=== PATIENT | female | born 1935 | race Caucasian/White ===

== ENCOUNTER 2016-02-17 11:49 | Outpatient (CLI) | payer MEDICARE, OTHER | END 2016-02-17 11:50 | disposition home or self-care (01) | DX: M51.36 Other intervertebral disc degeneration, lumbar region (principal); M47.816 Spondylosis without myelopathy or radiculopathy, lumbar region; M51.34 Other intervertebral disc degeneration, thoracic region ==

== ENCOUNTER 2018-04-12 13:17 | Outpatient (CLI) | payer MEDICARE, OTHER ==
--- NOTE | 2018-04-12 14:51 | XRAY Report ---
Reason: COUGH,PAIN IN LEFT KNEE Procedure Date: 04/12/2018 Accession Number: [id number] / [id number] Procedure: XR - Chest 2 View X-Ray CPT Code: 92125 FULL RESULT: EXAM: CHEST RADIOGRAPHY EXAM DATE: 04/12/2018 01:29 PM. CLINICAL HISTORY: Cough, pain IN LEFT KNEE. COMPARISON: THORACIC SPINE 2 VIEW 02/17/2016 12:20 PM. TECHNIQUE: 2 views. FINDINGS: Lungs/Pleura: Lungs are well expanded. No evidence of lobar consolidation or effusion. Increased opacity within the left lung base on frontal view is probably prominent epicardiac fat. There is no evidence of pneumothorax. Mediastinum: Heart and mediastinal contours are unremarkable. Other: None. IMPRESSION: No acute intrathoracic plain film abnormality. RADIA
--- NOTE | 2018-04-12 16:39 | XRAY Report ---
Reason: COUGH,PAIN IN LEFT KNEE Procedure Date: 04/12/2018 Accession Number: [id number] / [id number] Procedure: XR - Knee 3 View LT CPT Code: FULL RESULT: EXAM: LEFT KNEE RADIOGRAPHY EXAM DATE: 04/12/2018 01:29 PM. CLINICAL HISTORY: COUGH,PAIN IN LEFT KNEE. COMPARISON: None. TECHNIQUE: 3 views. FINDINGS: Bones: Normal. No fractures or bone lesions. Joints: No evidence of significant degenerative disease. No effusion. No subluxations. Soft Tissues: Normal. No soft tissue swelling. IMPRESSION: Negative knee radiography. RADIA
== END 2018-04-12 13:18 | disposition home or self-care (01) ==
LOC: DI 13:17
PROVIDERS: ATTEND Registered Nurse
DX: R05 Cough (principal); M25.562 Pain in left knee
CPT/HCPCS: 71046

== ENCOUNTER 2018-05-25 08:26 | Outpatient (CLI) | payer MEDICARE, OTHER ==
--- NOTE | 2018-05-25 16:11 | MRI Report ---
Reason: PAIN IN LEFT KNEE Procedure Date: 05/25/2018 Accession Number: [id number] / [id number] Procedure: MRI - Knee LT W/O CPT Code: FULL RESULT: EXAM: LEFT KNEE MRI WITHOUT CONTRAST EXAM DATE: 05/25/2018 09:13 AM. CLINICAL HISTORY: PAIN IN LEFT KNEE. COMPARISON: Left knee radiographs 04/12/2018. TECHNIQUE: Multiplanar, multisequence T1-weighted and fluid-sensitive sequences of the knee without contrast. Other: None. FINDINGS: Bones: No fractures. No osseous lesions.. Articular Cartilage: 1 x 1.1 cm area of deep partial thickness cartilage loss at the lateral patellar facet with small foci of underlying subchondral edema. 0.5 x 0.6 cm deep partial thickness cartilage loss of the lateral femoral trochlea with small foci of underlying subchondral edema. Medial compartment articular cartilage is intact. 0.9 x 0.6 cm deep partial thickness cartilage defect of the central weightbearing lateral tibial plateau without subchondral edema. The lateral femoral articular cartilage is intact. Medial Meniscus: Intermediate signal extends to the tibial surface of the posterior horn of the medial meniscus (series 701 images 19 through 22). Lateral Meniscus: Intermediate signal extends to the tibial surface of the posterior horn of the lateral meniscus (series 701 images 7 and 8). Cruciate Ligaments: The anterior and posterior cruciate ligaments are intact. Collateral Ligaments: The medial collateral and lateral collateral ligamentous structures are intact. Tendons: The quadriceps, patellar, semimembranosus, and popliteus tendons are unremarkable. Musculature: No edema or fatty atrophy. Other: Moderate sized effusion. Small popliteal cyst. No popliteal cyst. No loose bodies. The medial and lateral retinacula are intact. The subcutaneous tissues and fat pads are unremarkable. IMPRESSION: 1. Left knee osteoarthritis, with focal areas of deep partial thickness cartilage loss and mild underlying subchondral edema at the patellofemoral and lateral compartments. 2. Horizontal oblique tears of the posterior horns of the medial and lateral menisci. 3. Moderate sized knee joint effusion and small popliteal cyst. RADIA
== END 2018-05-25 08:27 | disposition home or self-care (01) ==
LOC: DI 08:26
PROVIDERS: ATTEND Registered Nurse
DX: M17.12 Unilateral primary osteoarthritis, left knee (principal); S83.242A Other tear of medial meniscus, current injury, left knee, initial encounter; S83.282A Other tear of lateral meniscus, current injury, left knee, initial encounter; M71.22 Synovial cyst of popliteal space [Baker], left knee; M25.462 Effusion, left knee

== ENCOUNTER 2020-02-21 08:08 | Emergency (ER) | payer MEDICARE, OTHER ==
[2020-02-21] MEDS ORDERED: KETOROLAC 30 MG/ML VIAL IM STA (08:35)
[2020-02-21] MEDS ORDERED: ONDANSETRON ODT 4 MG TABLET TL STA (08:35)
[2020-02-21] MEDS ORDERED: HYDROcod/ACETAM 5/325 MG TABLET PO STA (08:35)
--- NOTE | 2020-02-21 09:38 | ED Physician Documentation ---
PD HPI LOWER EXT INJURY - Stated complaint Stated Complaint: RT LEG PX - Chief complaint Chief Complaint: Ext Problem - History obtained from History obtained from: Patient - History of Present Illness PD HPI LOW EXT INJURY LOCATION: Right, Lower leg, Thigh Type of injury: No: Fall, Twist, Blunt / blow Timing - details: Gradual onset, Still present (fairly consistent pain, worse with walking, but not with leg movement itself. No rash nor sores. Pattern is lateral right thigh to knee and down anteromedial right lower leg. No edema.) Improved by: Rest. No: Meds Worsened by: Other (walking and with lower back bending.). No: Moving, Palpating Associated symptoms: No: Weakness, Numbness, Swelling, Discolored Similar symptoms before: Has not had sx before Recently seen: Not recently seen Review of Systems Constitutional: denies: Fever, Chills, Myalgias Nose: denies: Rhinorrhea / runny nose, Congestion Throat: denies: Sore throat Respiratory: denies: Cough GI: denies: Abdominal Pain, Nausea, Vomiting : denies: Dysuria, Frequency Skin: denies: Rash Neurologic: denies: Focal weakness, Numbness PD PAST MEDICAL HISTORY - Past Medical History Past Medical History: Yes Cardiovascular: None Respiratory: None - Past Surgical History Past Surgical History: No - Present Medications Home Medications: Ambulatory Orders Medication Instructions Recorded Confirmed HYDROcod/ACETAM 5/325 [[place] 5/325] 1 ea PO Q6H PRN #18 tablet 02/21/20 Ondansetron Odt [Zofran] 4 mg TL Q8H PRN #20 tablet 02/21/20 tiZANidine [Zanaflex] 4 mg PO Q8H PRN #25 tablet 02/21/20 - Allergies Allergies/Adverse Reactions: Allergies Allergy/AdvReac Type Severity Reaction Status Date / Time No Known Drug Allergies Allergy Verified 02/21/20 08:20 - Social History Does the pt smoke?: No Smoking Status: Unknown if ever smoked PD ED PE NORMAL - Vitals Vital signs reviewed: Yes - General General: Alert and oriented X 3, No acute distress (but does appear uncomfortable. Rubbing at right lateral thigh for distraction. No limitation of back movement. ), Well developed/nourished - Back Back: No CVA TTP, No spinal TTP - Derm Derm: Normal color, Warm and dry, No rash - Extremities Extremities: No edema, No calf tenderness / cord, Other (not tender in leg itself. ) - Neuro Neuro: Alert and oriented X 3, No motor deficit, No sensory deficit, Normal speech Results - Vitals Vitals: Vital Signs - 24 hr 02/21/20 02/21/20 08:14 10:05 Temperature 36.6 C 37.0 C Heart Rate 93 73 Respiratory 18 16 Rate Blood Pressure 143/102 H 109/82 H O2 Saturation 99 99 Oxygen O2 Source Room air PD MEDICAL DECISION MAKING - ED course Complexity details: considered differential (seems like sciatic pattern pain. Clinically not seeming to be DVT, shingles, myalgias, nor muscle strain. ), d/w patient Departure - Departure Disposition: Home, Self Care Clinical Impression: Sciatic leg pain Condition: Stable Record reviewed to determine appropriate education?: Yes Instructions: ED Sciatica Follow-Up: Kaylee Lobato, GINA [Primary Care Provider] - Prescriptions: HYDROcod/ACETAM 5/325 [[place] 5/325] 1 ea PO Q6H PRN #18 tablet PRN Reason: Pain tiZANidine [Zanaflex] 4 mg PO Q8H PRN #25 tablet PRN Reason: Spasms Ondansetron Odt [Zofran] 4 mg TL Q8H PRN #20 tablet PRN Reason: Nausea / Vomiting Comments: You with the prednisone as previously prescribed. Hold off on the tramadol. Use Tylenol every 6 hours or hydrocodone with acetaminophen if needed for worse pain. Zofran if needed for nausea from meds. Also consider tizanidine muscle relaxant in case there is some muscle spasming around the nerve roots. Follow-up for physical therapy or chiropractic would be helpful as well. Follow-up with your primary care this coming week for reevaluation. Discharge Date/Time: 02/21/20 10:13
[2020-02-21 10:06] VITALS: BP 109/82
== END 2020-02-21 10:13 | disposition home or self-care (01) ==
LOC: ED 08:08
DX: M54.31 Sciatica, right side (principal)
CPT/HCPCS: 96372; 99283; A9270; Q0162

== ENCOUNTER 2020-02-24 15:07 | Outpatient (CLI) | payer MEDICARE, OTHER ==
--- NOTE | 2020-02-24 16:29 | XRAY Report ---
PROCEDURE: Lumbar Spine 2 View INDICATIONS: PAIN IN RIGHT LEG TECHNIQUE: 3 views of the lumbar spine were acquired. COMPARISON: Lumbar spine radiographs dated 02/17/2016 FINDINGS: Bones: 5 [id number] vertebrae are present. There is normal bony alignment. No vertebral body compression fractures. No suspicious bony lesions. Mild disc space narrowing is seen at multiple le vels that is slightly more prominent at L5-S1. There is associated degenerative endplate changes. Fac et hypertrophy is noted at L3-4 through L5-S1. Soft tissues: Overlying bowel gas pattern is normal. No suspicious soft tissue calcifications. Ath erosclerotic calcifications are seen in the aorta. IMPRESSION: Multilevel spondylosis has mildly progressed when compared to the radiographs from 2016. Reviewed by: Albert Monsalve MD on 02/24/2020 4:27 PM PST Approved by: Albert Monsalve MD on 02/24/2020 4:27 PM PST Station ID: [id number]
--- NOTE | 2020-02-24 16:31 | XRAY Report ---
PROCEDURE: Hip w/Pelvis 2-3V RT INDICATIONS: PAIN IN RIGHT LEG TECHNIQUE: AP pelvis with lateral view(s) of the bilateral hip(s). COMPARISON: None. FINDINGS: Bones: No acute fractures or dislocations. Pelvic ring appears intact. No suspicious bony lesions. Mild degenerative changes are seen in the hips bilaterally with lateral acetabular spurring. Mild d egenerative changes also noted at the pubic symphysis. Degenerative changes are noted in the included spine. Soft tissues: The visualized bowel gas pattern is normal. No suspicious soft tissue calcifications. IMPRESSION: No acute osseous abnormality. Mild bilateral hip osteoarthrosis. If there is clinical co ncern or persistent symptoms, further evaluation with repeat radiographs or advanced imaging (e.g. CT , MRI) may be obtained for further evaluation. Reviewed by: Albert Monsalve MD on 02/24/2020 4:30 PM PST Approved by: Albert Monsalve MD on 02/24/2020 4:30 PM PST Station ID: [id number]
== END 2020-02-24 15:08 | disposition home or self-care (01) ==
LOC: DI.S 15:07
PROVIDERS: ATTEND Registered Nurse
DX: M16.0 Bilateral primary osteoarthritis of hip (principal); M47.816 Spondylosis without myelopathy or radiculopathy, lumbar region; M47.817 Spondylosis without myelopathy or radiculopathy, lumbosacral region

== ENCOUNTER 2020-11-19 09:55 | Outpatient (CLI) | payer MEDICARE, OTHER ==
--- NOTE | 2020-11-19 17:33 | DEXA Report ---
PROCEDURE: Dexa Spine and/or Hip INDICATIONS: POST MENOPAUSAL TECHNIQUE: Dual energy x-ray absorptiometry (DXA) was performed on a [employer] System. Regions measur ed are the AP Spine, femoral neck, and if needed forearm. COMPARISON: None. FINDINGS: Lumbar Spine: Bone Mineral Density 0.999 g/cm/cm,T score -1.5, osteopenia Left Hip: Bone Mineral Density 0.786 g/cm/cm,T score -1.8, osteopenia Left Femoral Neck: Bone Mineral Density 0.714 g/cm/cm, T score -2.3, osteopenia (T score greater or equal to -1.0: NORMAL) (T score from -1.1 to -2.4: OSTEOPENIA) (T score less than or equal to -2.5 to: OSTEOPOROSIS) Impression: Osteopenia. Patients with diagnosis of osteoporosis or osteopenia should have regular bone mineral density assess ment. For those eligible for Medicare, routine testing is allowed once every 2 years. Testing frequ ency can be increased for patients who have rapidly progressing disease or for those who are receivin g medical therapy to restore bone mass. Reviewed by: Tomasa Stoddard MD, PhD on 11/19/2020 5:31 PM PDT Approved by: Tomasa Stoddard MD, PhD on 11/19/2020 5:31 PM PDT Station ID: [id number]
== END 2020-11-19 09:56 | disposition home or self-care (01) ==
LOC: DI 09:55
PROVIDERS: ATTEND Registered Nurse
DX: M85.89 Other specified disorders of bone density and structure, multiple sites (principal); Z78.0 Asymptomatic menopausal state

== ENCOUNTER 2020-12-15 13:18 | Outpatient (CLI) | payer MEDICARE, OTHER ==
--- NOTE | 2020-12-15 15:07 | XRAY Report ---
PROCEDURE: Lumbar Spine 2 View INDICATIONS: BACK PAIN TECHNIQUE: 2 views of the lumbar spine were acquired. COMPARISON: 02/24/2020 plain films FINDINGS: Bones: 5 [id number] vertebrae are present. There is normal bony alignment. No vertebral body compression fractures. No suspicious bony lesions. Multilevel disc space narrowing and endplate ost eophyte formation. Facet hypertrophy throughout the mid and lower lumbar spine. Soft tissues: Overlying bowel gas pattern is normal. No suspicious soft tissue calcifications. IMPRESSION: Multilevel degenerative disc and facet disease. No acute fracture. No osseous lesion. If symptoms and/or clinical suspicion for pathology continue, further assessment with repeat plain film s, or advanced imaging (e.g., CT, MRI, or bone scan) is recommended for further assessment. Reviewed by: Vishnu Walsh MD on 12/15/2020 3:06 PM PST Approved by: Vishnu Walsh MD on 12/15/2020 3:06 PM PST Station ID: [id number]
== END 2020-12-15 13:19 | disposition home or self-care (01) ==
LOC: DI 13:18
PROVIDERS: ATTEND Anesthesiology
DX: M47.816 Spondylosis without myelopathy or radiculopathy, lumbar region (principal); M51.36 Other intervertebral disc degeneration, lumbar region

== ENCOUNTER 2021-07-28 17:37 | Observation (INO) | payer MEDICARE, OTHER ==
[2021-07-28] MEDS ORDERED: PROCHLORPERAZINE 10 MG/2 ML VIAL IVP STA (17:45)
[2021-07-28] MEDS ORDERED: SODIUM CHLORIDE 0.9% 1,000 ML IV STA (17:45)
--- NOTE | 2021-07-28 17:48 | ED Physician Documentation ---
History of Present Illness - Stated complaint Stated Complaint: DIZZINESS/NAUSEA - Additonal information Additional information: 86-year-old female presents to the emergency department for evaluation of sudden onset dizziness and nausea. She reports that she was working in her garden outside. She was bending over and when she went to stand up she began to feel very off balance and nauseated. She did not feel that she could safely stand so she lowered her self to the ground. She attempted to stand again but could not due to dizziness. Then she summoned 911. On presentation from EMS she is supine when she sits upright she endorses worsening dizziness and begins to dry heave. Though symptoms lasted for about 1 minute before dissipating For EMS she was very nauseated refractory to Zofran. She had a normal blood glucose and her [place] stroke scale was negative. Patient denies any chest pain or shortness of air. She presents with no focal neurodeficits. She has fluid speech. No history of similar in the past. No recent illness Review of Systems Constitutional: denies: Fever, Chills Eyes: reports: Reviewed and negative Ears: reports: Reviewed and negative Nose: reports: Reviewed and negative GI: reports: Nausea, Vomiting : reports: Reviewed and negative Musculoskeletal: reports: Reviewed and negative Neurologic: reports: Other (Vertigo spinning sensation) PD PAST MEDICAL HISTORY - Past Medical History Cardiovascular: None Respiratory: None - Past Surgical History Past Surgical History: No - Present Medications Home Medications: Ambulatory Orders Medication Instructions Recorded Confirmed HYDROcod/ACETAM 5/325 [[place] 5/325] 1 ea PO Q6H PRN #18 tablet 02/21/20 Ondansetron Odt [Zofran] 4 mg TL Q8H PRN #20 tablet 02/21/20 tiZANidine [Zanaflex] 4 mg PO Q8H PRN #25 tablet 02/21/20 - Allergies Allergies/Adverse Reactions: Allergies Allergy/AdvReac Type Severity Reaction Status Date / Time No Known Drug Allergies Allergy Verified 07/28/21 17:44 - Social History Does the pt smoke?: No Smoking Status: Unknown if ever smoked PD ED PE EXPANDED - General General: Alert, In distress - HEENT HEENT: Atraumatic, PERRL, Ears normal (No effusions, TM perforations), Moist mucous membranes, Pharynx normal. No: EOMI (no nystagmus elicited with lateral gaze deviation) - Cardiac Cardiac: Regular Rate, Radial strong equal, Cap refill < 2 sec. No: Murmur Present - Respiratory Respiratory: Clear to ausultation gurdeep. No: Distress, Labored - Abdomen Abdomen: Normal Bowel sounds. No: Tender to palpation - Derm Derm: Normal color, Warm and dry. No: Rash - Neuro Neuro: Alert and Oriented X 3, CNII-XII intact, PERRL, Other (No nystagmus noted. Dizziness is worse when turning head to the left and sitting upright. Symptoms dissipate after about 30 to 60 seconds) - GCS Eye Opening: Spontaneous Motor: Obeys Commands Verbal: Oriented Total: 15 Results - Vitals Vitals: Vital Signs - 24 hr 07/28/21 07/28/21 07/28/21 17:44 17:49 20:22 Temperature 36.5 C Heart Rate 60 63 69 Respiratory 16 16 16 Rate Blood Pressure 153/68 H 186/87 H 141/64 H O2 Saturation 100 98 94 Oxygen O2 Source Room air - EKG (time done) 1807 Rhythm: NSR, Other (ventricular bigeminy) [place]: Normal Intervals: Normal CA. No: Prolonged QT QRS: Normal Ischemia: Normal ST segments Compare to prior EKG: Old EKG unavailable Computer interpretation: Agree with computer - Labs Labs: Laboratory Tests 07/28/21 07/28/21 07/28/21 17:53 17:53 17:53 WBC 7.6 RBC 3.80 L Hgb 12.2 Hct 35.1 L MCV 92.4 MCH 32.1 H MCHC 34.8 RDW 12.8 Plt Count 252 MPV 9.0 Neut # (Auto) 3.7 Lymph # (Auto) 2.9 Weld # (Auto) 0.8 Eos # (Auto) 0.2 Baso # (Auto) 0.0 Absolute Nucleated RBC 0.00 Nucleated RBC % 0.0 Sodium 137 Potassium 3.3 L Chloride 105 Carbon Dioxide 24 Anion Gap 8.0 BUN 18 Creatinine 0.6 Estimated GFR (MDRD) 95 Glucose 132 H Calcium 9.1 Total Bilirubin 0.5 AST 19 ALT 20 Alkaline Phosphatase 61 Troponin I High Sens 7.2 Total Protein 6.5 L Albumin 3.9 Globulin 2.6 Albumin/Globulin Ratio 1.5 Lipase 29 TSH Thyroxine (T4) 07/28/21 17:53 WBC RBC Hgb Hct MCV MCH MCHC RDW Plt Count MPV Neut # (Auto) Lymph # (Auto) Weld # (Auto) Eos # (Auto) Baso # (Auto) Absolute Nucleated RBC Nucleated RBC % Sodium Potassium Chloride Carbon Dioxide Anion Gap BUN Creatinine Estimated GFR (MDRD) Glucose Calcium Total Bilirubin AST ALT Alkaline Phosphatase Troponin I High Sens Total Protein Albumin Globulin Albumin/Globulin Ratio Lipase TSH 1.99 Thyroxine (T4) 7.23 - Rads (name of study) CT head Radiology: Final report received (Atrophy and moderate white matter chronic ischemic change without acute hemorrhage or mass-effect. Incidental small midline lipoma) PD MEDICAL DECISION MAKING - ED course Complexity details: reviewed results, re-evaluated patient, considered differential, d/w patient ED course: 86-year-old female presents to the emergency department for evaluation of acute onset vertigo. She was in her garden, gardening and was bent over. When she went to stand up she felt suddenly out of balance and felt she was at risk for a fall therefore she sat down. EMS was summoned. For EMS she had no obvious focal neurodeficits and a negative stroke scale. She was modestly hypertensive and actively vomiting. On presentation to the emergency department her NIHSS was 0. She however had extreme sensation of feeling off balance and dizzy when turning her head. We did attempt the Best maneuver at the bedside without resolution of symptoms. Screening chest x-ray, EKG labs troponin and CT of the head are all essentially negative. We did attempt to get control of her symptoms using IV fluids, Compazine, Zofran and meclizine. Despite this she is still quite vertiginous and is unable to get out of bed. Because we do not have IV contrast here at the hospital we are unable to do CT angiogram of the head and neck. Thus she was presented to our hospitalist Dr. Waterman for further evaluation and management and likely MRI in the morning to rule out a posterior circulation stroke though based on history this is felt to be less likely. Departure - Departure Disposition: ED Place in Observation Clinical Impression: Vertigo Condition: Serious NIHSS - Time Time: 17:45 - Level of Consciousness Level of consciousness: (1) Not alert, but arousable by minor stimulation to obey, or answer LOC Questions: (0) Answers both Q's correct LOC Commands: (0) Performs both correctly - Gaze Best Gaze: (0) Normal - Visual Visual: (0) No loss - Facial Palsy Facial Palsy: (0) Normal, symmetrical movement - Motor Arms (both separate) Motor Arm (right): (0) No drift Motor Arm (left): (0) No drift - Motor Legs (both separate) Motor Leg (right): (0) No drift Motor Leg (left): (0) No drift - Limb Ataxia Limb Ataxia: (0) Absent - Sensory Sensory: (0) Normal - Best Language Best Language: (0) No aphasia - Dysarthria Dysarthria: (0) Normal - Extinction and Inattention (formally neg Extinction and inattention: (0) No abnormality - Total Score/Results Total Score/Result: 1
[2021-07-28 17:59] LABS: BASOPHILS % (AUTO) 0.3 %; EOSINOPHILS # (AUTO) 0.2 10^3/uL (0.0-0.7); EOSINOPHILS % (AUTO) 2.9 %; HCT - HEMATOCRIT 35.1 % (37.0-47.0); HGB - HEMOGLOBIN 12.2 g/dL (12.0-16.0); LYMPHOCYTES # (AUTO) 2.9 10^3/uL (1.5-3.5); LYMPHOCYTES % (AUTO) 37.8 %; MEAN CORPUSCULAR HEMOGLOBIN 32.1 pg (27.0-31.0); MEAN CORPUSCULAR HGB CONC 34.8 g/dL (32.0-36.0); MEAN CORPUSCULAR VOLUME 92.4 fL (81.0-99.0); MONOCYTES # (AUTO) 0.8 10^3/uL (0.0-1.0); MONOCYTES % (AUTO) 10.7 %; NEUTROPHILS # (AUTO) 3.7 10^3/uL (1.5-6.6); PLT - PLATELET COUNT 252 10^3/uL (130-450); RED CELL DISTRIBUTION WIDTH 12.8 % (12.0-15.0); WHITE BLOOD COUNT 7.6 x10^3/uL (4.8-10.8)
[2021-07-28 18:14] LABS: ALBUMIN 3.9 g/dL (3.2-5.5); ALBUMIN/GLOBULIN RATIO 1.5 (1.0-2.2); BILIRUBIN,TOTAL 0.5 mg/dL (0.2-1.0); CALCIUM 9.1 mg/dL (8.5-10.3); CREATININE 0.6 mg/dL (0.4-1.0); POTASSIUM 3.3 mmol/L (3.5-5.0); TOTAL PROTEIN 6.5 g/dL (6.7-8.2)
[2021-07-28 18:24] LABS: T4 (THYROXINE) 7.23 ug/dL (6.09-12.23)
[2021-07-28 18:28] LABS: THYROID STIMULATING HORMONE 1.99 uIU/mL (0.34-5.60)
--- NOTE | 2021-07-28 18:35 | XRAY Report ---
PROCEDURE: Chest 1 View X-Ray INDICATIONS: Chest Pain TECHNIQUE: One view of the chest was acquired. COMPARISON: 04/12/2018 FINDINGS: Surgical changes and devices: None. Heart size normal. There is underlying diffuse chronic interstitial changes of probable underlying va scular congestion. Atherosclerotic vascular calcification noted in the aortic arch. Bones and chest wall: No suspicious bony lesions. Overlying soft tissues appear unremarkable. IMPRESSION: Mild vascular congestion with underlying chronic interstitial changes Reviewed by: Carlos Claudio MD on 07/28/2021 5:33 PM AKDT Approved by: Carlos Claudio MD on 07/28/2021 5:33 PM AKDT Station ID: [id number]
--- NOTE | 2021-07-28 18:49 | CT Report ---
PROCEDURE: CT brain without contrast INDICATIONS: Sudden onset vertigo and vomiting TECHNIQUE: Noncontrast 4.5 mm thick angled axial sections acquired from the foramen magnum to the vertex. For r adiation dose reduction, the following was used: automated exposure control, adjustment of mA and/or kV according to patient size. COMPARISON: None. FINDINGS: Image quality: Excellent. CSF spaces: Basal cisterns are patent. No extra-axial fluid collections. Ventricles are normal in size and shape. Brain: No midline shift. No intracranial masses or hemorrhage. Khan-white matter interface is norm al. Moderate atrophy and multifocal white matter chronic ischemic change noted. Atherosclerotic vasc ular calcification noted in the cavernous segments of both internal carotid arteries as well as the i ntradural vertebral arteries. Incidental small midline lipoma noted in the vellum interpositum wrapping around the splenium of the corpus callosum measuring overall 1.6 x 0.6 cm Skull and face: Calvarium and visualized facial bones are intact, without suspicious lesions. Bilat eral intraocular lens replacements noted. Sinuses: Visualized sinuses and mastoids are clear. IMPRESSION: Atrophy and moderate white matter chronic ischemic change without acute hemorrhage or mass effect Incidental small midline lipoma Reviewed by: Carlos Claudio MD on 07/28/2021 5:48 PM AKDT Approved by: Carlos Claudio MD on 07/28/2021 5:48 PM AKDT Station ID: [id number]
[2021-07-28] MEDS ORDERED: MECLIZINE 12.5 MG TABLET PO STA (18:56)
[2021-07-28] MEDS ORDERED: ONDANSETRON 4 MG/2 ML VIAL IVP STA (19:14)
[2021-07-28] MEDS ORDERED: ONDANSETRON ODT 4 MG TABLET TL PRN (20:32)
[2021-07-28] MEDS ORDERED: SODIUM CHLORIDE FLUSH 0.9% 10 ML SYRINGE IVP PRN (20:32)
[2021-07-28] MEDS ORDERED: MECLIZINE 12.5 MG TABLET PO PRN (20:33)
[2021-07-28] MEDS ORDERED: LORazepam 0.5 MG TABLET PO STA (20:35)
--- NOTE | 2021-07-28 21:22 | HISTORY & PHYSICAL EXAMINATION ---
Chief Complaint - Chief Complaint Chief Complaint: Dizziness History of Present Illness - Admitted From Admitted From:: Home - History Obtained From Records Reviewed: [facility] History obtained from: Patient, ER Provider, EMR - History of Present Illness HPI Comment/Other: This is a 86-year-old female with a past medical history significant for hypot hyroidism who presents today complaining of dizziness and lightheadedness. She states her symptoms began this afternoon when she began to garden. She bent over as she normally would and when she stood up she began to feel dizzy and lightheaded suddenly. She does not believe that she had vertigo. Her only complaint was feeling dizzy and lightheaded. She also felt very unsteady with poor balance and she actually fell to the ground. She denies any syncope or loss of consciousness. No chest pain, palpitations, dyspnea. She denies any focal deficits, numbness, slurred speech. She states she still feels dizzy and lightheaded at this time. She has not had any similar symptoms in the past. She had garden the last couple of days without any similar symptoms. The symptoms occurred today when she first started gardening. She states she has been eating and drinking plenty of fluids as usual. She does feel a little thirsty and complains of a dry mouth at this time. She has used a back brace gardening and this is not new. She denies any ear pain or hearing loss. In the emergency department, she was given meclizine, Compazine, Zofran without any improvement in her symptoms. Best maneuver was attempted in the emergency department without success. Ambulation was attempted but she was still quite symptomatic and return to bed immediately. Given her ongoing symptoms, medicine was consulted for admission. We did discuss goals of care and she would like to be a DNR. 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 She was a smoker. Her father had a history of stroke. Living arrangement: At home Living Situation: With spouse/s.o. Social History Notes: She lives at home with her . She is a non-smoker. She will have one glass of wine every other day. Meds/Allgy - Home Medications Home Medications: Ambulatory Orders Medication Instructions Recorded Confirmed HYDROcod/ACETAM 5/325 [Chilo 5/325] 1 ea PO Q6H PRN #18 tablet 02/21/20 Ondansetron Odt [Zofran] 4 mg TL Q8H PRN #20 tablet 02/21/20 tiZANidine [Zanaflex] 4 mg PO Q8H PRN #25 tablet 02/21/20 - Allergies Allergies/Adverse Reactions: Allergies Allergy/AdvReac Type Severity Reaction Status Date / Time No Known Drug Allergies Allergy Verified 07/28/21 17:44 Review of Systems - Constitutional Constitutional: reports: Weakness. denies: Fever, Chills - Eyes Eyes: denies: Blurred vision, Vision loss - Ears, Nose & Throat Ears, Nose & Throat: reports: Vertigo. denies: Ear pain, Hearing loss, Tinnitus, Nasal discharge, Nasal congestion - Cardiovascular Cariovascular: reports: Lightheadedness. denies: Palpitations, Chest pain, Edema, Syncope, Exertional dyspnea, Decr. exercise tolerance - Respiratory Respiratory: denies: Cough, SOB at rest, SOB with exertion - Gastrointestinal Gastrointestinal: reports: Nausea. denies: Abdominal pain, Diarrhea, Change in bowel habits, Vomiting - Genitourinary Genitourinary: denies: Dysuria, Frequency, Hematuria - Musculoskeletal Musculoskeletal: denies: Muscle pain, Limited range of motion - Integumentary Integumentary: denies: Rash - Neurological Neurological: reports: General weakness, Dizziness. denies: Focal weakness, Headache, Numbness - All Other Systems All Other Systems: reports: Reviewed and negative Prior Level of Functionality: She is independent with her ADL's. Exam - Vital Signs Reviewed Vital Signs: Yes Vital Signs: Vital Signs x48h Temp Pulse Resp BP Pulse Ox 07/28/21 20:22 69 16 141/64 H 94 07/28/21 17:49 63 16 186/87 H 98 07/28/21 17:44 36.5 C 60 16 153/68 H 100 - Physical Exam General Appearance: positive: No acute distress, Alert Eyes Bilateral: positive: Normal inspection, PERRL, EOMI, No lid inflammation, Conjunctivae nml, Other (No nystagmus.) ENT: positive: Dry mucous membranes. negative: No signs of dehydration Neck: positive: Nml inspection Respiratory: positive: No respiratory distress. negative: Wheezes, Rales Cardiovascular: positive: Regular rate & rhythm, No murmur. negative: Tachycardia Abdomen: positive: Non-tender, No distention. negative: Tenderness Skin: positive: Warm, Dry Extremities: positive: No pedal edema Neurologic/Psychiatric: positive: Motor nml, Other (5/5 motor strength in all four extremities. No dysmetria. No pronator drift.). negative: Disoriented to person, Disoriented to place, Disoriented to time, Sensory loss, Facial droop, Slurred/abnml speech Conclusion/Plan - Problem List (1) Vertigo Conclusion/Plan: Concern is for BPPV as a cause of her symptoms given the history. CT the head showed no acute abnormalities. She does appear dry on exam and there could be a component of hypovolemia although I do not believe this to be the cause of her symptoms. Low suspicion for arrhythmia as the cause of her symptoms as well. We will place in observation and start her on gentle IV hydration. We will use meclizine as needed. We will try low-dose of lorazepam now. We will order an MRI for the morning a low suspicion for stroke given lack of other deficits. We will ask PT to see her in the morning as well. (2) Hypothyroidism Conclusion/Plan: Continue Synthroid. Her TSH is within normal limits. - Lab Results Lab results reviewed: Yes Fish Bones: 07/29/21 04:53 07/29/21 04:53 - Diagnostic Imaging Results Diagnostic Imaging Results: positive: Final report reviewed - EKG Results EKG Interpreted Independently: Yes EKG Findings: EKG reveals sinus rhythm. No evidence of ischemia. Bigeminy is noted. Core Measures - Anticipated LOS I expect patient to be DC'd or transferred within 96 hours.: Yes - Issues Hospital Issues and Management Plan: 86-year-old female presents with dizziness/lightheadedness/vertigo that persists despite the medic management in the emergency department. She be placed in observation for further work-up including MRI. - DVT/VTE - Prophylaxis VTE/DVT Device ordered at admit?: Yes VTE/DVT Prophylaxis med ordered at admit?: No
[2021-07-28] MEDS: LACTATED RINGERS 1,000 ML IV SCH (22:03)
[2021-07-28] MEDS ORDERED: POTASSIUM CHLORIDE 20 MEQ/15 ML UDC PO ONE (23:00)
[2021-07-29] MEDS: SODIUM CHLORIDE FLUSH 0.9% 10 ML SYRINGE IVP SCH ×2 (00:09→11:11)
[2021-07-29] MEDS: ACETAMINOPHEN 325 MG TABLET PO PRN ×2 (02:04→07:39)
[2021-07-29 05:41] LABS: BASOPHILS % (AUTO) 0.1 %; EOSINOPHILS % (AUTO) 0.4 %; HCT - HEMATOCRIT 35.4 % (37.0-47.0); HGB - HEMOGLOBIN 11.7 g/dL (12.0-16.0); LYMPHOCYTES # (AUTO) 1.8 10^3/uL (1.5-3.5); LYMPHOCYTES % (AUTO) 24.4 %; MEAN CORPUSCULAR HEMOGLOBIN 31.5 pg (27.0-31.0); MEAN CORPUSCULAR HGB CONC 33.1 g/dL (32.0-36.0); MEAN CORPUSCULAR VOLUME 95.4 fL (81.0-99.0); MEAN PLATELET VOLUME 9.4 fL (7.9-10.8); MONOCYTES # (AUTO) 0.6 10^3/uL (0.0-1.0); MONOCYTES % (AUTO) 7.9 %; NEUTROPHILS % (AUTO) 66.9 %; PLT - PLATELET COUNT 251 10^3/uL (130-450); RED BLOOD COUNT 3.71 10^6/uL (4.20-5.40); WHITE BLOOD COUNT 7.4 x10^3/uL (4.8-10.8)
[2021-07-29 05:52] LABS: CALCIUM 9.1 mg/dL (8.5-10.3); CREATININE 0.5 mg/dL (0.4-1.0); POTASSIUM 3.8 mmol/L (3.5-5.0)
[2021-07-29] MEDS: LACTATED RINGERS 1,000 ML IV SCH (07:39)
--- NOTE | 2021-07-29 11:08 | MRI Report ---
PROCEDURE: Brain W/O INDICATIONS: Vertigo TECHNIQUE: Noncontrast axial T1 spin echo, axial T2 fast spin echo, sagittal and axial FLAIR, coronal T2 fast sp in echo, axial gradient echo, axial diffusion and ADC through the brain. COMPARISON: None. FINDINGS: Image quality: Excellent. CSF Spaces: Basal cisterns are patent. No extra-axial fluid collections. Ventricles are normal in size and shape. Brain: Moderate global cerebral volume loss and severe chronic microvascular ischemic changes. The ma adolph intracranial vascular flow-related signal voids are maintained. No restricted diffusion to indica te recent ischemia. No unexpected intracranial susceptibility. Incidentally noted the intracranial li dajuan in the velum interpositum extending around the splenium of the corpus callosum. No findings of m ass effect or midline shift. Skull and face: Intraocular lens replacements. Orbital structures are otherwise normal. Normal bone m arrow signal intensity in the calvaria and skull base. Sinuses: Paranasal sinuses and mastoid air cells are predominantly clear. IMPRESSION: Moderate global cerebral volume loss and severe chronic microvascular ischemic changes. No acute intracranial abnormality. Reviewed by: Michael Benítez MD on 07/29/2021 11:06 AM PDT Approved by: Michael Benítez MD on 07/29/2021 11:06 AM PDT Station ID: [id number]
--- NOTE | 2021-07-29 11:41 | PHARMACY PROGRESS NOTE ---
- Best Possible Medication History Admit Date and Time: 07/28/212031 Processed by: Pharmacy Medication History completed: Yes Patient Interview: Completed Secondary Source(s): Pharmacy records, Insurance records As the person ultimately responsible for medication therapy, providers are able to order a medication from an existing home medication list in [facility] via the "Reconcile Routine" prior to Confirmation of that medication by practice support specialist. Such practice is discouraged except when the physician, in their clinical judgment, deems that a medical need exists for a medication without regard to previous use.
--- NOTE | 2021-07-29 14:44 | Discharge Plan ---
Discharge Plan Problem Reviewed?: Yes Disposition: Home, Self Care Condition: Good Prescriptions: Meclizine [Antivert] 25 mg PO Q6HR PRN #60 tablet PRN Reason: Dizziness Rosuvastatin Calcium [Crestor] 40 mg PO QPM #30 tablet Diet: Low Sodium Activity Restrictions: No Restrictions Shower Restrictions: No Weight Bearing: Full Weight Instruction Topics: TIA, Vertigo Ch, Diet High Potassium Dc Plan of Treatment: Wou were found to have a mild transient ischemic attack which would explain your vertigo type symptoms and dizziness. You will be prescribed meclizine to be taken when you feel dizzy. I would advise that you restrict her bending to about 20-30 minutes at a time while doing yard work. I did switch your lipid reducing agent from atorvastatin to rosuvastatin which is also known as Crestor to 40 mg every evening. He will continue all your home medications and will defer off aspirin for now due to risk of bleeding. You will return to your doctor in 1 to 2 weeks. Care Goals: Your goals of care are to participate and secondary prevention of further complications of your hyperlipidemia and making sure that you are blood pressures are okay at home. You are to continue with a low-sodium diet. Gradual exercise to obtain or achieve your condition back to your baseline is r ecommended. No Smoking: If you smoke, Please STOP! Call for help. Follow-up with: Kaylee Lobato ARNP [Primary Care Provider] - 2 Weeks
--- NOTE | 2021-07-29 15:18 | DISCHARGE SUMMARY ---
"Discharge Summary Admit Date: 07/28/21 Discharge Date: 07/29/21 Discharging Provider: Dr. White Primary Care Provider: Kyalee Lobato Code Status: Do Not Attempt Resuscitation Condition at Discharge: Good Discharge Disposition: 01 Home, Self Care - DIAGNOSES Admission Diagnoses: (1) Vertigo (2) Hypothyroidism Discharge Diagnoses with Status of Each Condition: (1) Vertigo/TIA---Resolved (2) Hypothyroidism---Stable (3) Hyperlipidemia---Stable (4) Hypokalemia---resolved - HPI History of Present Illness: This is a 86-year-old female with a past medical history significant for hypothy roidism who presents today complaining of dizziness and lightheadedness. She states her symptoms began this afternoon when she began to garden. She bent over as she normally would and when she stood up she began to feel dizzy and lightheaded suddenly. She does not believe that she had vertigo. Her only complaint was feeling dizzy and lightheaded. She also felt very unsteady with poor balance and she actually fell to the ground. She denies any syncope or loss of consciousness. No chest pain, palpitations, dyspnea. She denies any focal deficits, numbness, slurred speech. She states she still feels dizzy and lightheaded at this time. She has not had any similar symptoms in the past. She had garden the last couple of days without any similar symptoms. The symptoms occurred today when she first started gardening. She states she has been eating and drinking plenty of fluids as usual. She does feel a little thirsty and complains of a dry mouth at this time. She has used a back brace gardening and this is not new. She denies any ear pain or hearing loss. In the emergency department, she was given meclizine, Compazine, Zofran without any improvement in her symptoms. Best maneuver was attempted in the emergency department without success. Ambulation was attempted but she was still quite symptomatic and return to bed immediately. Given her ongoing symptoms, medicine was consulted for admission. We did discuss goals of care and she would like to be a DNR. - CONSULTS | PROCEDURES Consultations: None Procedures: None - HOSPITAL COURSE Hospital Course: Patient was admitted for suspected CVA however was found to have a TIA by clinical criteria as her vertigo was essentially resolved by IV fluids and Ativan as well as supportive care. Patient's initial CTh did not show acute abnormalities and differential diagnosis concerning for BPPV although physical t herapy had evaluated patient and did not deem her clinical suspicion for BPPV. Her orthostats did show mild orthostasis not requiring midodrine.Patient did have hypokalemia for which she did receive KCl supplementation as well as LR with normal potassium on repeat. Patient lacked neuro logical focal deficits and essentially her MRI was unremarkable showing severe chronic microvascular ischemic changes. Her ultrasound of carotids were unremarkable and echocardiogram unlikely showing cardioembolic source for her symptoms. Her hyperlipidemia was managed with atorvastatin and no blood pressure medications were given due to systolic blood pressures being in the 130s but as low as the 100s and namely when orthostats were performed from sitting to standing. Was able to ambulate with PT and OT was able to perform ADLs and was HD stable on discharge and to follow-up with PCP 1 to 2 weeks. Patient will be prescribed meclizine and switched atorvastatin to Crestor for improvement of hypertrigl yceridemia. - ALLERGIES Allergies/Adverse Reactions: Allergies Allergy/AdvReac Type Severity Reaction Status Date / Time No Known Drug Allergies Allergy Verified 07/28/21 17:44 - MEDICATIONS Home Medications: Ambulatory Orders Medication Instructions Recorded Confirmed Cholecalciferol (Vitamin D3) 25 mcg PO DAILY 07/29/21 07/29/21 [Vitamin D3] Levothyroxine [Synthroid] 125 mcg PO QDAC 07/29/21 07/29/21 Meclizine [Antivert] 25 mg PO Q6HR PRN #60 tablet 07/29/21 Rosuvastatin Calcium [Crestor] 40 mg PO QPM #30 tablet 07/29/21 - PHYSICAL EXAM AT DISCHARGE General Appearance: positive: No acute distress, Alert Eyes Bilateral: positive: Normal inspection, PERRL, EOMI ENT: positive: ENT inspection nml, Pharynx nml, No signs of dehydration Neck: positive: Nml inspection, Thyroid nml, No JVD, Trachea midline. negative: Thyromegaly Respiratory: positive: Chest non-tender, No respiratory distress, Breath sounds nml Cardiovascular: positive: Regular rate & rhythm, No murmur, No gallop. ne gative: Irregularly irregular, JVD present Peripheral Pulses: positive: 2+ Abdomen: positive: Non-tender, No organomegaly, Nml bowel sounds, No distention. negative: Tenderness Back: positive: Nml inspection, CVA tenderness (R) Skin: positive: Color nml, No rash, Warm Extremities: positive: Non-tender, Full ROM, Nml appearance Neurologic/Psychiatric: positive: Oriented x3, CN's nml (2-12). negative: Weakness, Slurred/abnml speech - LABS Result Diagrams: 07/29/21 04:53 07/29/21 04:53 - DIAGNOSTIC IMAGING Diagnostic Imaging Results: Final report reviewed - QUALITY (Female Hip Fx Only) Was patient sent home on osteoporosis medication?: No - FOLLOW UP Follow Up: Her PCP in 1 to 2 weeks. - TIME SPENT Time Spent in Discharge (Minutes): 40"
[2021-07-29 15:38] VITALS: BP 108/56
== END 2021-07-29 16:10 | disposition home or self-care (01) ==
LOC: EDUNIT# → ED 17:37 → MS2 20:32
PROVIDERS: ADMIT Internal Medicine; ATTEND Family Medicine
DX: G45.9 Transient cerebral ischemic attack, unspecified (principal); R42 Dizziness and giddiness; E78.5 Hyperlipidemia, unspecified; E87.6 Hypokalemia; E03.9 Hypothyroidism, unspecified; E78.1 Pure hyperglyceridemia; Z66 Do not resuscitate; I95.1 Orthostatic hypotension; Z20.822 Contact with and (suspected) exposure to COVID-19
CPT/HCPCS: 36415; 70450; 70551; 71045; 80048; 80053; 83690; 84436; 84443; 84484; 85025; 87635; 93005; 96374; 96375; 97161; 99284; 99285; A9270; G0378; J7120

== ENCOUNTER 2022-07-25 09:22 | Emergency (ER) | payer MEDICARE, OTHER ==
--- NOTE | 2022-07-25 09:35 | ED Physician Documentation ---
PD HPI Fall - Stated complaint Stated Complaint: RT SIDE PX - Chief complaint Chief Complaint: Trauma Ch/Bk - History obtained from History obtained from: Patient, Family - History of Present Illness Mechanism of injury: Tripped (tripped on rug and fell forward, striking face and chest/abdomen on table edge. Pain in right lower chest/upper abd since, worse with movement and breathing deeply. No pain with eating.) Fall distance: Standing position Where injury occurred: Home Timing - onset: How many days ago (3) Injury(ies) location: Face, Chest, Abdomen Quality of pain: Pain, Aching Associated symptoms: No: LOC, AMS Symptoms improve with: Rest Worsens with: Movement, Palpation Contributing factors: No: Anticoagulated Similar symptoms before: Has not had sx before Recently seen: Not recently seen Review of Systems Constitutional: denies: Fever, Chills Nose: denies: Rhinorrhea / runny nose, Congestion Throat: denies: Sore throat Cardiac: reports: Chest pain / pressure. denies: Palpitations, Pedal edema, Calf pain Respiratory: denies: Dyspnea, Cough, Wheezing GI: reports: Abdominal Pain. 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 - Present Medications Home Medications: Ambulatory Orders Medication Instructions Recorded Confirmed Cholecalciferol (Vitamin D3) 25 mcg PO DAILY 07/29/21 07/25/22 [Vitamin D3] Levothyroxine [Synthroid] 125 mcg PO QDAC 07/29/21 07/25/22 Meclizine [Antivert] 25 mg PO Q6HR PRN #60 tablet 07/29/21 Rosuvastatin Calcium [Crestor] 40 mg PO QPM #30 tablet 07/29/21 07/25/22 HYDROcod/ACETAM 5/325 [[place] 5/325] 1 ea PO Q6H PRN #20 tablet 07/25/22 Meloxicam [Mobic] 7.5 mg PO BID 10 Days #20 tablet 07/25/22 - Allergies Allergies/Adverse Reactions: Allergies Allergy/AdvReac Type Severity Reaction Status Date / Time No Known Drug Allergies Allergy Verified 07/25/22 09:26 - Social History Does the pt smoke?: No Smoking Status: Never smoker PD ED PE NORMAL - Vitals Vital signs reviewed: Yes - General General: Alert and oriented X 3, No acute distress, Well developed/nourished - HEENT HEENT: Other (lower lip and chin with swelling and some bruising. normal mouth opening and closing. ) - Neck Neck: Supple, no meningeal sign, No bony TTP - Cardiac Cardiac: RRR, No murmur - Respiratory Respiratory: Clear bilaterally, Other - Abdomen Abdomen: Soft, Non distended, Other (she is tender right anterolateral chest wall lower ribs and cartilage, with marked local tender also at parasternal lower aspect in area of cartilage. Upper abd right side and some to lateral abd trunk with tenderness to deeper palpation. No rebound nor percussion tender. No rash nor sores. ). No: Normal bowel sounds (diminished) - Back Back: No spinal TTP - Derm Derm: Normal color, Warm and dry - Neuro Neuro: Alert and oriented X 3, No motor deficit, No sensory deficit, Normal speech Results - Vitals Vitals: Vital Signs - 24 hr 07/25/22 07/25/22 09:26 13:12 Temperature 37.1 C 36.7 C Heart Rate 93 62 Respiratory 20 20 Rate Blood Pressure 141/100 H 152/63 H O2 Saturation 95 95 Oxygen O2 Source Room air - Labs Labs: Laboratory Tests 07/25/22 10:05 Sodium 142 Potassium 3.9 Chloride 108 Carbon Dioxide 25 Anion Gap 9.0 BUN 14 Creatinine 0.6 Estimated GFR (MDRD) 95 Glucose 130 H Calcium 9.3 Total Bilirubin 0.7 AST 24 ALT 23 Alkaline Phosphatase 68 Total Protein 7.5 Albumin 4.2 Globulin 3.3 Albumin/Globulin Ratio 1.3 Lipase 37 - Rads (name of study) abd/pelvic CT Relevant Findings:: Prelim report reviewed (no organ injuries. nondisplaced fracture of ribs 7 and 8 laterally. no PTX. incidental finding of hypodense 1.7 cm lesion pancreatic duct without blockage. ), EMP independent interpretation of test, See rad report PD Medical Decision Making - ED course Complexity details: considered differential (fell and has pain right chest/abd. Concern for internal organs as well as outer structures (ribs/ soft tissue). Shared decision to do CT scan.), d/w patient, d/w family (spouse) Reviewed Lab Results: CT abd (which would incorporate enough of the chest to see the lower chest area involved. Showing 2 rib fractures. No organ injuries. Incidental pancreatic cyst like lesion with MRI suggested outpt. I discussed all the findings with the patient and spouse and gave them a copy of the CT report. She was having much less pain with meds here in ER. Drug Therapy Requiring Monitoring for Toxicity: given toradol and Dilaudid 0.5 mg IV with quite good improvement in pain level. Departure - Departure Disposition: Home, Self Care Clinical Impression: Accidental fall, Facial contusion, Contusion of trunk, Rib fractures, Pancreatic cyst Condition: Stable Record reviewed to determine appropriate education?: Yes Instructions: ED Fx Rib Follow-Up: Kaylee Lobato ARNP [Primary Care Provider] - Prescriptions: Meloxicam [Mobic] 7.5 mg PO BID 10 Days #20 tablet HYDROcod/ACETAM 5/325 [[place] 5/325] 1 ea PO Q6H PRN #20 tablet PRN Reason: Pain Comments: Your CT scan shows 2 fractures at ribs 7 and 8 that are nondisplaced. You should heal with time and less activity based on comfort. The worst pain is typically a week to 10 days but will take a good 4 weeks or so to decreasingly get better. No other injury noted on your CT scan. In particular lungs and liver in that area appear normal. The report does comment on a cyst like area which is 1.7 cm in size in the pancreatic neck. Better evaluation of it can be done with an MRI exam (MRI or MRCP). Follow-up with your primary care regarding this for outpatient testing to better evaluate. This would not be related to the current injury. For your current injury, anti-inflammatories and Tylenol are the mainstay. I wrote for a longer acting anti-inflammatory meloxicam so it can be taken just twice daily with food and have a longer duration. To that add Tylenol every 4-6 hours if needed for pain. To that add hydrocodone/acetaminophen if needed for worse pain. I prescribed these for you with the intention being most likely the first week or so. I sent your prescriptions to [facility] pharmacy. I am prescribing a short course of narcotic pain medication for you. These are potentially dangerous and addictive medications that should be used carefully. These medications may constipate you. Take an [id number] stool softener such as docusate twice daily with plenty of water while taking these medications. If you go 24 hours without a bowel movement, take [id number] MiraLAX, per package instructions. Do not drink or drive while taking these medications. If you received narcotic or sedating medications while in the emergency department do not drive for 24 hours. Store this medication in a safe, secure place and out of reach of children. It is a violation of federal law to give or sell this medication to another p erson or to use in a manner other than prescribed. The ED will not refill narcotic prescriptions, including prescriptions lost or stolen. You can dispose of unwanted medications at the [facility]'s office or at several pharmacies such as [facility]. Discharge Date/Time: 07/25/22 13:12
[2022-07-25] MEDS ORDERED: HYDROmorphone 0.5 MG/0.5 ML SYRINGE IVP STA (10:00)
[2022-07-25] MEDS ORDERED: KETOROLAC 15 MG/ML VIAL IVP STA (10:00)
[2022-07-25 10:27] LABS: ALBUMIN 4.2 g/dL (3.2-5.5); ALBUMIN/GLOBULIN RATIO 1.3 (1.0-2.2); BILIRUBIN,TOTAL 0.7 mg/dL (0.2-1.0); CALCIUM 9.3 mg/dL (8.5-10.3); CREATININE 0.6 mg/dL (0.4-1.0); POTASSIUM 3.9 mmol/L (3.5-5.0); TOTAL PROTEIN 7.5 g/dL (6.7-8.2)
[2022-07-25] MEDS ORDERED: iohexoL-300 100 ML VIAL ONE (10:41)
--- NOTE | 2022-07-25 11:18 | CT Report ---
PROCEDURE: ABDOMEN/PELVIS W INDICATIONS: RUQ/right lower ant chest pain after fall CONTRAST: 100ml Omnipaque 300 TECHNIQUE: After the administration of intravenous contrast, 5 mm thick sections acquired from the diaphragms to the symphysis. 5 mm thick coronal and sagittal reformats were acquired. For radiation dose reducti on, the following was used: automated exposure control, adjustment of mA and/or kV according to tirso ent size. COMPARISON: None FINDINGS: Image quality: Excellent. Lung bases and heart: Right basilar atelectasis. Cardiomegaly. Tiny hiatal hernia. Liver: No solid mass. Gallbladder and biliary tree: Cholelithiasis without wall thickening. No biliary dilation. Spleen: No splenomegaly. Pancreas: Hypoattenuating lesion in the pancreas neck measuring 1.7 cm (series 3, image 25). The panc reas is atrophic, without ductal dilation. Adrenals: No adrenal nodule. Kidneys and ureters: No hydronephrosis. No renal cystic lesion which requires follow up. No solid mas s. Bowel and peritoneum: No bowel distension. No pathologic free fluid. Lymph nodes: No central or retroperitoneal adenopathy. Vessels: No infrarenal aortic aneurysm. PELVIS Reproductive organs: Unremarkable. Bladder: No abnormal wall thickening, accounting for underdistension. Pelvic lymph nodes: No pelvic adenopathy by size criteria. Bones: Displaced right seventh and eighth lateral rib fractures. Other: Tiny umbilical hernia containing fat. Trace right inguinal hernia containing fat. IMPRESSION: Displaced right seventh lateral rib fractures. No pneumothorax. Right basilar atelectasis. Hypoattenuating lesion in the pancreatic neck measuring 1.7 cm, without associated pancreatic ductal dilation. Findings probably represent a side branch abdomen. Nonemergent MRI/MRCP should be considere d for complete characterization. Reviewed by: Greg Mosley on 07/25/2022 11:17 AM PDT Approved by: Greg Mosley on 07/25/2022 11:17 AM PDT Station ID: [id number]
[2022-07-25 13:15] VITALS: BP 152/63
[2022-07-25] MEDS ORDERED: iohexoL-300 100 ML VIAL IVP ONE (14:29)
== END 2022-07-25 13:12 | disposition home or self-care (01) ==
LOC: ED 09:22
DX: S00.83XA Contusion of other part of head, initial encounter (principal); S22.49XA Multiple fractures of ribs, unspecified side, initial encounter for closed fracture; W01.190A Fall on same level from slipping, tripping and stumbling with subsequent striking against furniture, initial encounter; E03.9 Hypothyroidism, unspecified; Z79.899 Other long term (current) drug therapy
CPT/HCPCS: 36415; 74177; 80053; 83690; 96374; 96375; 99284; J1170; Q9967

== ENCOUNTER 2023-05-15 10:35 | Outpatient (CLI) | payer MEDICARE, OTHER ==
--- NOTE | 2023-05-15 14:17 | DEXA Report ---
PROCEDURE: Dexa Spine and/or Hip INDICATIONS: OSTEOPENIA TECHNIQUE: Dual energy x-ray absorptiometry (DXA) was performed on a [employer] System. Regions measur ed are the AP Spine, femoral neck, and if needed forearm. COMPARISON: DEXA 11/19/2020 FINDINGS: Lumbar Spine: Bone Mineral Density: 0.856 g/cm/cm,T score: -2.6. There has been no statistically significant walker e in bone mineral density since the prior study. Left Femoral Neck: Bone Mineral Density: 0.653 g/cm/cm, T score: -2.8. Left Hip: Bone Mineral Density: 0.758 g/cm/cm,T score: -2.0. There has been no statistically significant change in bone mineral density since the prior study. (T score greater or equal to -1.0: NORMAL) (T score from -1.1 to -2.4: OSTEOPENIA) (T score less than or equal to -2.5 to: OSTEOPOROSIS) Impression: By WHO criteria, this patient has osteoporosis. No statistical interval change in bone mineral density of the lumbar spine. No statistical interval c hange in bone mineral density of the hip. Patients with diagnosis of osteoporosis or osteopenia should have regular bone mineral density assess ment. For those eligible for Medicare, routine testing is allowed once every 2 years. Testing frequ ency can be increased for patients who have rapidly progressing disease or for those who are receivin g medical therapy to restore bone mass. Reviewed by: Albert Monsalve MD on 05/15/2023 2:15 PM PDT Approved by: Albert Monsalve MD on 05/15/2023 2:15 PM PDT Station ID: [id number]
== END 2023-05-15 10:36 | disposition home or self-care (01) ==
LOC: DI 10:35
PROVIDERS: ATTEND Registered Nurse
DX: M81.0 Age-related osteoporosis without current pathological fracture (principal)